=== PATIENT | male | born 1935 | race African-American/Black ===

== ENCOUNTER 2018-11-04 12:50 | Inpatient (IN) ==
--- NOTE | 2018-11-04 13:39 | XR ---
EXAM DATE: 11/04/2018 1:31 PM EST AGE/SEX: 83 years / Male INDICATIONS: Cardiac disease. CLINICAL DATA: This is the patient's initial encounter. Patient reports that signs and symptoms have been present for 1 day and indicates a pain score of Nonresponsive. MEDICAL/SURGICAL HISTORY: . Dementia. Alzheimer's. Pancreatitis. Neck pain. Hypertension. Numbn ess, feet. Arthritis. Back pain. Anxiety. None. COMPARISON: [facility] – [place] SING[place] AP, 06/08/2016. . FINDINGS: Portable AP view of the chest demonstrates a normal-sized cardiac silhouette with calcification of th e aorta. Lungs are underinflated with left basilar airspace opacity and mild patchy airspace opacity throughout the right lung. No pleural effusion or pneumothorax is identified. Bones and soft tissues demonstrate no acute abnormality. CONCLUSION: Mild patchy airspace consolidation in the right lung and left basilar opacity representing either ate lectasis or consolidation. Electronically signed by: Chandana Benitez MD 11/04/2018 1:38 PM EST
--- NOTE | 2018-11-04 13:53 | CT ---
EXAM DATE: 11/04/2018 1:49 PM EST AGE/SEX: 83 years / Male INDICATIONS: Altered mental status. CLINICAL DATA: This is the patient's initial encounter. Patient reports that signs and symptoms have been present for 1 day and indicates a pain score of 0/10. MEDICAL/SURGICAL HISTORY: Cerebrovascular disease. Hypertension. None. RADIATION DOSE: 37.52 CTDI (mGy) COMPARISON: [facility] – [place], [place] BRAIN W/O CONTRAST, 06/08/2016. . TECHNIQUE: CT of the head without contrast. Using automated exposure control and adjustment of the mA and/or kV according to patient size, radiation dose was kept as low as reasonably achievable to ob tain optimal diagnostic quality images. DICOM format image data is available electronically for revi ew and comparison. FINDINGS: Cerebrum: There is mild generalized atrophy and ventricles are normal given the degree of atrophy. M ild periventricular white matter change is present. No midline shift, mass lesion, hemorrhage or acu te infarction. No extraaxial fluid collections are seen. Posterior Fossa: The cerebellum and brainstem demonstrate no acute abnormality. The 4th ventricle is midline. The cerebellopontine angle is within normal limits. Extracranial: The visualized sinuses are clear. Skull: The calvaria is intact. No skull fracture. CONCLUSION: 1. No acute intracranial abnormality is identified. 2. Chronic findings include generalized atrophy and chronic periventricular white matter change. . Electronically signed by: Chandana Benitez MD 11/04/2018 1:52 PM EST
[2018-11-04] MEDS ORDERED: Sodium Chlor 0.9% Inj 500 ML IV.SIG SCH ×2 (14:00→16:51)
[2018-11-04 14:17] LABS: Baso % (Auto) 0.3 % (0.0-2.0); Eos # (Auto) 0.1 th/mm3 (0.0-0.4); Eos % (Auto) 1.1 % (0.0-4.0); Hemoglobin 12.5 gm/dL (13.0-17.0); Lymph # (Auto) 1.5 th/mm3 (1.0-4.8); Lymph % (Auto) 19.5 % (9.0-44.0); Mean Corpuscular HGB Conc 32.9 % (32.0-36.0); Mean Corpuscular Hemoglobin 29.8 pg (27.0-34.0); Mean Corpuscular Volume 90.7 fL (80.0-100.0); Mean Platelet Volume 9.1 fL (7.0-11.0); Mono # (Auto) 0.4 th/mm3 (0.0-0.9); Mono % (Auto) 5.8 % (0.0-8.0); Neut # (Auto) 5.6 th/mm3 (1.8-7.7); Neut % (Auto) 73.3 % (16.0-70.0); Platelet Count 142 th/mm3 (150-450); Red Blood Count 4.19 mil/mm3 (4.50-5.90); Red Cell Distribution Width 14.1 % (11.6-17.2); White Blood Count 7.7 th/mm3 (4.0-11.0)
--- NOTE | 2018-11-04 14:18 | ED ---
HPI General Chief Complaint: Altered Mental Status Stated Complaint: AMS Time Seen by Provider: 11/04/18 12:57 Source: EMS Mode of arrival: EMS History of Present Illness HPI narrative: Patient is an 83-year-old male, past medical history sick significant for, CVA with residual contractures, who presents with complaint of altered mental status for an unknown amount of possibly since yesterday or possibly today. When patient was asked if he has any pain he states no but does not provide further information. Per EMS his heart rate was in the 40s in route but this is his baseline and family has refused for him to have a pacemaker placed in the past. They report stable blood pressure while en route. MD complaint: Reports altered mental status Onset (ago): unknown Consistency of symptoms: unknown Context: Reports unknown Associated symptoms: Reports denies other symptoms Related Data Allergies Allergy/AdvReac Type Severity Reaction Status Date / Time No Known Allergies Allergy Uncoded 11/30/15 20:44 Review of Systems ROS Unobtainable ROS Unobtainable: unobtainable due to mental status PMFSH Medical History Medical History Altered mental status (Acute) Alzheimer disease (Acute) BPH (benign prostatic hyperplasia) (Acute) CVA (cerebral vascular accident) (Acute) Cataracts, bilateral (Acute) Chronic pain (Acute) Depression (Acute) Failure to thrive (Acute) [place] (hard of hearing) (Acute) Hypertension (Acute) Neuropathy (Acute) Osteoarthritis (Acute) Social History Social History Substance History: No History of Abuse Smoking Status: Unknown if ever smoked How Often Do You Have a Drink Containing Alcohol: Never Immunization History Tetanus Immunization: Unsure Exam Narrative Exam Narrative: GENERAL: Well-appearing, elderly male in no acute distress SKIN: Focused skin assessment warm/dry. Small chronic healing wound to top of left foot but no sacral decubitus ulcers. HEAD: Atraumatic. Normocephalic. EYES: Pupils equal and round. No scleral icterus. No injection or drainage. ENT: No nasal bleeding or discharge. Mucous membranes pink and moist. NECK: Trachea midline. No JVD. CARDIOVASCULAR: Regular rate and rhythm. No murmur appreciated. Intact and equal peripheral pulses. RESPIRATORY: No accessory muscle use. Clear to auscultation. Breath sounds equal bilaterally. GASTROINTESTINAL: Abdomen soft, non-tender, nondistended. Hepatic and splenic margins not palpable. MUSCULOSKELETAL: No clubbing. No cyanosis. No edema. NEUROLOGICAL: Awake and alert. No obvious cranial nerve deficits. Contractures to bilateral upper extremities. Patient wiggle toes when asked and did squeeze with his left hand when asked. He did not squeeze with his right hand when asked. PSYCHIATRIC: Appropriate mood and affect; insight and judgment normal. Course Initial Documented Vital Signs Pulse Oximetry 100 11/04/18 13:07 Last Documented Vital Signs Temperature 98.7 F 11/04/18 13:10 Pulse Rate 44 L 11/04/18 13:10 Respiratory Rate 20 11/04/18 13:10 Blood Pressure 130/59 L 11/04/18 13:10 Pulse Oximetry 100 11/04/18 13:10 Medical Decision Making MDM Narrative Medical decision making narrative: Patient is an 83-year-old male who presents from the [facility] with of decreased responsiveness and more fatigue. Patient has no complaints but is a poor historian. He is hemodynamically stable on the emergency department despite his chronic bradycardia with rate in the 40s. Chest x-ray does show pneumonia, blood cultures were drawn and he was given Rocephin and Levaquin. Labs reveal a creatinine of 3.8. We reviewed the patient's paperwork and discussed with family and they do not recall any previous history of chronic kidney disease this is assumed to be new. He has been given fluids and has been admitted for further evaluation and management of his TEODORO. Medical Screen Exam Complete: Yes Emergency Medical Condition: Yes Differential Diagnosis Differential Diagnosis: Differential diagnosis includes but is not limited to acute infection, trauma with intracranial hemorrhage, worsening of chronic medical issues. Medical Records Medical records reviewed: Yes I reviewed the patient's medical records. Lab Data Lab results reviewed: Yes I reviewed the patient's lab results. Result diagrams: 11/04/18 13:50 11/04/18 13:50 Lab Results 11/04/18 11/04/18 11/04/18 Range/Units 13:50 13:50 15:15 WBC 7.7 (4.0-11.0) th/mm3 RBC 4.19 L (4.50-5.90) mil/mm3 Hgb 12.5 L (13.0-17.0) gm/dL Hct 38.0 L (39.0-51.0) % MCV 90.7 (80.0-100.0) fL MCH 29.8 (27.0-34.0) pg MCHC 32.9 (32.0-36.0) % RDW 14.1 (11.6-17.2) % Plt Count 142 L (150-450) th/mm3 MPV 9.1 (7.0-11.0) fL Neut % (Auto) 73.3 H (16.0-70.0) % Lymph % (Auto) 19.5 (9.0-44.0) % [place] % (Auto) 5.8 (0.0-8.0) % Eos % (Auto) 1.1 (0.0-4.0) % Baso % (Auto) 0.3 (0.0-2.0) % Neut # (Auto) 5.6 (1.8-7.7) th/mm3 Lymph # (Auto) 1.5 (1.0-4.8) th/mm3 [place] # (Auto) 0.4 (0.0-0.9) th/mm3 Eos # (Auto) 0.1 (0.0-0.4) th/mm3 Baso # (Auto) 0.0 (0.0-0.2) th/mm3 WBC Differential . Differential Comment Auto diff final Sodium 140 (136-145) meq/L Potassium 5.1 (3.5-5.1) meq/L Chloride 101 (98-107) meq/L Carbon Dioxide 30.0 (21.0-32.0) meq/L Anion Gap 9 (5-15) meq/L BUN 40 H (7-18) mg/dL Creatinine 3.82 H (0.60-1.30) mg/dL Estimated GFR 18 L (>89) mL/min Random Glucose 109 H (74-106) mg/dL Calcium 8.3 L (8.5-10.1) mg/dL Magnesium 2.8 H (1.5-2.5) mg/dL Total Bilirubin 0.4 (0.2-1.0) mg/dL AST 12 L (15-37) U/L ALT 19 (12-78) U/L Alkaline Phosphatase 63 (45-117) U/L Troponin I Less than 0.02 L (0.02-0.05) ng/mL Total Protein 6.9 (6.4-8.2) g/dL Albumin 3.6 (3.4-5.0) g/dL Urine Color [place]armaine (Yellw/Straw) Urine Clarity Cloudy H (Clear) Urine pH 5.0 (5.0-8.5) Ur Specific [place] 1.020 (1.002-1.035) Urine Protein 100 H (Neg-Trace) mg/dL Urine Glucose (UA) Negative (Negative) mg/dL Urine Ketones Negative (Negative) mg/dL Urine Occult Blood Moderate H (Negative) Urine Nitrate Negative (Negative) Urine Bilirubin Negative (Negative) Urine Urobilinogen Less than 2 (Less than 2) mg/dL Ur Leukocyte Esterase Trace H (Negative) Urine RBC 24 H (0-3) /hpf Urine WBC 6 H (0-5) /hpf Ur Squamous Epith Cells 1 (0-5) /hpf Ur Transition Epith Cell 2 (None) /hpf Amorphous Sediment Rare H (None) /hpf Urine Bacteria Rare H (None) /hpf Granular Casts 84 (None) /lpf Urine Mucus Moderate H (Occasional) /lpf Micro UA Comment Cath-culture ind Ur Microscopic Review Not Reportable Urine Culture Comments Cath-cult indicated Imaging Data Attestation: I personally reviewed and interpreted this imaging study as follows : Radiologist's impression: Chest X-Ray 11/04/18 13:07 CONCLUSION: Mild patchy airspace consolidation in the right lung and left basilar opacity representing either atelectasis or consolidation. Head CT 11/04/18 13:07 CONCLUSION: 1. No acute intracranial abnormality is identified. 2. Chronic findings include generalized atrophy and chronic periventricular white matter change. . Discharge Plan Discharge Disposition Patient Disposition: ED Admit(ED Internal Use Only) Discharge Condition Condition: Stable Discharge Order Discharge Orders: ED Use Only Admit Order (Routine); Ordered 11/04/18 Ordered By: Awa June Discharge Details Diagnosis: Pneumonia, TEODORO (acute kidney injury) Physicians Team ED Provider: Awa June Primary Care Provider: Sameer Laurent Attending Provider: Claribel Ackerman Status ED Status: Admitted Patient
[2018-11-04 14:34] LABS: Alanine Aminotransferase 19 U/L (12-78); Albumin 3.6 g/dL (3.4-5.0); Anion Gap 9 meq/L (5-15); Aspartate Aminotransferase 12 U/L (15-37); Blood Urea Nitrogen 40 mg/dL (7-18); Calcium 8.3 mg/dL (8.5-10.1); Chloride 101 meq/L (98-107); Glomerular Filtration Rate 18 mL/min (>89); Glucose,Random 109 mg/dL (74-106); Magnesium 2.8 mg/dL (1.5-2.5); Potassium 5.1 meq/L (3.5-5.1); Sodium 140 meq/L (136-145)
[2018-11-04 14:38] LABS: Alkaline Phosphatase 63 U/L (45-117); Total Protein 6.9 g/dL (6.4-8.2)
[2018-11-04] MEDS ORDERED: Bisacodyl 10 MG Supp RECTAL PRN (15:44)
[2018-11-04] MEDS ORDERED: Acetaminophen 325 MG Tablet PO PRN (15:44)
[2018-11-04] MEDS ORDERED: Sod Chloride 0.9% Inj 1,000 ML IV.CONT SCH (15:45)
--- NOTE | 2018-11-04 15:52 | P.HPIM ---
History of Present Illness Primary Care Physician: Sameer Laurent MD Chief Complaint: Altered Mental Status History of Present Illness: Mr. Telles is an 83-year-old male. He has a past medical history of Alzheimer's disease. History is obtained from his family member. For the past 3 days it is reported that he has had a progressive onset of confusion and has been vomiting up some of his intake. P.o. intake has been decreased. No cough. Imaging however shows consolidation bilaterally suggestive of pneumonia. No hypoxia. Altered mental status is likely encephalopathy related to infection. Additionally he has acute kidney injury on top of a mild chronic kidney disease. Etiology for his acute kidney injury appears to be related to dehydration. No other complaints tonight. Patient cannot contribute to history and his current state. Review of Systems ROS Unobtainable: unobtainable due to mental condition and unobtainable due to mental status PMFSH Medical History Medical History Altered mental status (Acute) Alzheimer disease (Acute) BPH (benign prostatic hyperplasia) (Acute) CVA (cerebral vascular accident) (Acute) Cataracts, bilateral (Acute) Chronic pain (Acute) Depression (Acute) Failure to thrive (Acute) [place] (hard of hearing) (Acute) Hypertension (Acute) Neuropathy (Acute) Osteoarthritis (Acute) Family History Family History Other Osteoarthritis Social History Social History Substance History: No History of Abuse Smoking Status: Unknown if ever smoked How Often Do You Have a Drink Containing Alcohol: Never Immunization History Tetanus Immunization: Unsure Medications and Allergies Allergies Allergy/AdvReac Type Severity Reaction Status Date / Time No Known Allergies Allergy Uncoded 11/30/15 20:44 Home Medications Medication Instructions Recorded Confirmed Type alprazolam [Xanax] 0.25 mg PO BID 11/04/18 11/04/18 History amlodipine [Norvasc] 5 mg PO DAILY 11/04/18 11/04/18 History ammonium lactate [AmLactin] 1 applic TOPICAL QPM 11/04/18 11/04/18 History aspirin 81 mg PO DAILY 11/04/18 11/04/18 History clonidine HCl [Catapres] 0.1 mg PO DAILY 11/04/18 11/04/18 History hydrochlorothiazide 25 mg PO DAILY 11/04/18 11/04/18 History lactulose 20 g PO HS 11/04/18 11/04/18 History memantine [Namenda] 10 mg PO BID 11/04/18 11/04/18 History sennosides [senna] 8.6 mg PO BID 11/04/18 11/04/18 History Active Medications: Active Medications Acetaminophen (Tylenol) 650 mg PO Q4H PRN PRN Reason: Fever, Headache, pain 1-4 Al Hydroxide/Mg Hydroxide (Milk Of Magnesia Liq) 30 ml PO Q12H PRN PRN Reason: Mild Constipation Bisacodyl (Dulcolax Supp) 10 mg RECTAL DAILY PRN PRN Reason: SEVERE CONSITIPATION Heparin Sodium (Porcine) (Heparin Inj) 5,000 units SQ Q12H LAUREN Sodium Chloride (Ns Inj) 1,000 mls @ 100 mls/hr IV.CONT .Q10H LAUREN Stop: 11/05/18 15:44 Azithromycin 500 mg/ Sodium (Chloride) 250 mls @ 250 mls/hr IV.SIG Q24H LAUREN Ceftriaxone Sodium 2,000 mg/ (Sodium Chloride) 100 mls @ 200 mls/hr IV.SIG Q24H LAUREN Lactulose (Lactulose Liq) 30 ml PO DAILY PRN PRN Reason: SEVERE CONSITIPATION Ondansetron HCl (Zofran Inj) 4 mg IV.PUSH Q6H PRN PRN Reason: NAUSEA OR VOMITING Sennosides (Senokot) 17.2 mg PO Q12H PRN PRN Reason: Moderate Constipation Sodium Chloride (Ns Flush) 2 ml IV.FLUSH PRN PRN PRN Reason: FLUSH AFTER USING IV ACCESS Sodium Chloride (Ns Flush) 2 ml IV.FLUSH BID LAUREN Sodium Chloride (Ns Flush) 2 ml IV.FLUSH PRN PRN PRN Reason: FLUSH AFTER USING IV ACCESS Physical Exam Vital signs: Last Vital Signs Temp 98.7 F 11/04/18 13:10 Pulse 44 L 11/04/18 13:10 Resp 20 11/04/18 13:10 BP 130/59 L 11/04/18 13:10 Pulse Ox 100 11/04/18 13:10 Intake & Output 1211/03/18 11/04/18 11/05/18 06:59 06:59 06:59 06:59 Intake Total 500 / 500 Balance 500 / 500 Weight 75 kg Results Labs CBC & Chem 7: 11/04/18 13:50 11/04/18 13:50 Imaging Impressions Chest X-Ray 11/04/18 13:07 CONCLUSION: Mild patchy airspace consolidation in the right lung and left basilar opacity representing either atelectasis or consolidation. Head CT 11/04/18 13:07 CONCLUSION: 1. No acute intracranial abnormality is identified. 2. Chronic findings include generalized atrophy and chronic periventricular white matter change. . Caprini VTE Risk Assessment Caprini VTE Risk Assessment: Moderate/High Risk (score >= 2) Caprini Risk Assessment Model: Point Value = 1 Point Value = 2 Point Value = 3 Point Value = 5 Age 41-60 Minor surgery BMI > 25 kg/m2 Swollen legs Varicose veins or History of unexplained or recurrent spontaneous Oral contraceptives or hormone replacement Sepsis (< 1 month) Serious lung disease, including pneumonia (< 1 month) Abnormal pulmonary function Acute myocardial infarction Congestive heart failure (< 1 month) History of inflammatory bowel disease Medical patient at bed rest Age 61-74 Arthroscopic surgery Major open surgery (> 45 min) Laparoscopic surgery (> 45 min) Malignancy Confined to bed (> 72 hours) Immobilizing plaster cast Central venous access Age >= 75 History of VTE Family history of VTE Factor V Leiden Prothrombin [id number] Lupus anticoagulant Anticardiolipin antibodies Elevated serum homocysteine Heparin-induced thrombocytopenia Other congenital or acquired thrombophilia Stroke (< 1 month) Elective arthroplasty Hip, pelvis, or leg fracture Acute spinal cord injury (< 1 month) Prophylaxis Regimen: Total Risk Factor Score Risk Level Prophylaxis Regimen 0-1 Low Early ambulation 2 Moderate Order ONE of the following: *Sequential Compression Device (SCD) *Heparin 5000 units SQ BID 3-4 Higher Order ONE of the following medications: *Heparin 5000 units SQ TID *Enoxaparin/Lovenox 40 mg SQ daily (WT < 150 kg, CrCl > 30 mL/min) *Enoxaparin/Lovenox 30 mg SQ daily (WT < 150 kg, CrCl > 10-29 mL/min) *Enoxaparin/Lovenox 30 mg SQ BID (WT < 150 kg, CrCl > 30 mL/min) AND/OR *Sequential Compression Device (SCD) 5 or more Highest Order ONE of the following medications: *Heparin 5000 units SQ TID (Preferred with Epidurals) *Enoxaparin/Lovenox 40 mg SQ daily (WT < 150 kg, CrCl > 30 mL/min) *Enoxaparin/Lovenox 30 mg SQ daily (WT < 150 kg, CrCl > 10-29 mL/min) *Enoxaparin/Lovenox 30 mg SQ BID (WT < 150 kg, CrCl > 30 mL/min) AND *Sequential Compression Device (SCD) Assessment and Plan Plan 83 year old male admitted due to altered mental status and delerium, likely from encephalopathy related to pneumonia, with dehydration and TEODORO. TEODORO CKD Follow renal function IV Hydration Monitor I&O Possible etiology of TEODORO is dehydration Probable Community Acquired Pneumonia Rocephin Azithromycin Probiotics Oxygen support as needed Metabolic Encephalopathy Delerium Alzheimer Disease Related to infection Treat with antibiotics as above Follow for improvement HTN Continue baseline treatments Follow BP Adjust as needed BPH Hx of CVA Depression OA Chronic Neuropathy Continue baseline treatments DVT Prophylaxis SCDs, given current renal function
[2018-11-04 16:13] LABS: Amorphous Sediment,Urine Rare /hpf; Bacteria,Urine Rare /hpf; Bilirubin,Urine Negative (Negative); Clarity,Urine Cloudy (Clear); Color,Urine Amber (Yellw/Straw); Glucose,Urine (UA) Negative (Negative); Leukocyte Esterase,Urine Trace (Negative); Mucus,Urine Moderate /lpf (Occasional); Nitrite,Urine Negative (Negative); Squamous Epithelial Cell,Urine 1 /hpf (0-5); Transitional Epi Cells,Urine 2 /hpf
[2018-11-04] MEDS: Heparin - SQ 10,000 UNITS/ML Vial SQ SCH (16:15)
[2018-11-04] MEDS: Azithromycin Inj 500 MG in Sodium Chlor 0.9% Inj 250 ML IV.SIG SCH (17:30)
[2018-11-04] MEDS: Lactobacillus Acidophilus/L. Spores Tablet PO SCH (17:31)
[2018-11-04] MEDS: Sod Chloride 0.9% Inj 1,000 ML IV.CONT SCH (19:48)
[2018-11-05] MEDS: Sod Chloride 0.9% Inj 1,000 ML IV.CONT SCH ×2 (02:39→12:40)
[2018-11-05] MEDS: Heparin - SQ 10,000 UNITS/ML Vial SQ SCH ×2 (02:44→15:58)
[2018-11-05 07:18] LABS: Baso % (Auto) 0.4 % (0.0-2.0); Eos # (Auto) 0.2 th/mm3 (0.0-0.4); Hematocrit 34.3 % (39.0-51.0); Hemoglobin 11.5 gm/dL (13.0-17.0); Lymph # (Auto) 1.5 th/mm3 (1.0-4.8); Lymph % (Auto) 29.3 % (9.0-44.0); Mean Corpuscular HGB Conc 33.6 % (32.0-36.0); Mean Corpuscular Hemoglobin 29.5 pg (27.0-34.0); Mean Corpuscular Volume 87.7 fL (80.0-100.0); Mean Platelet Volume 9.4 fL (7.0-11.0); Mono # (Auto) 0.4 th/mm3 (0.0-0.9); Mono % (Auto) 6.9 % (0.0-8.0); Neut # (Auto) 3.2 th/mm3 (1.8-7.7); Neut % (Auto) 60.4 % (16.0-70.0); Platelet Count 136 th/mm3 (150-450); Red Blood Count 3.91 mil/mm3 (4.50-5.90); White Blood Count 5.3 th/mm3 (4.0-11.0)
[2018-11-05 07:36] LABS: Albumin 3.1 g/dL (3.4-5.0); Anion Gap 9 meq/L (5-15); Aspartate Aminotransferase 16 U/L (15-37); Blood Urea Nitrogen 40 mg/dL (7-18); Calcium 7.8 mg/dL (8.5-10.1); Carbon Dioxide 25.1 meq/L (21.0-32.0); Chloride 107 meq/L (98-107); Glomerular Filtration Rate 26 mL/min (>89); Glucose,Random 86 mg/dL (74-106); Potassium 4.4 meq/L (3.5-5.1); Sodium 141 meq/L (136-145)
[2018-11-05 07:39] LABS: Alanine Aminotransferase 17 U/L (12-78); Alkaline Phosphatase 55 U/L (45-117); Total Protein 6.2 g/dL (6.4-8.2)
[2018-11-05] MEDS: Lactobacillus Acidophilus/L. Spores Tablet PO SCH ×3 (08:01→18:02)
--- NOTE | 2018-11-05 12:26 | P.PNIM ---
Subjective Interval history: Follow up altered mental status, pneumonia, yeast infection Patient seen and examined while resting in bed. Daughter at bedside. Patient with history of Alzheimer's. He responds "yep" to everything. Daughter states patient lives in a long-term and she noticed that he was less alert over the past few days. He has had a poor appetite. She became concerned and called 911. Daughter states patients mental status is significantly improved since admission but not quite back to baseline. RN notes yeast to groin area and genitals. Physical Exam Vital signs: Last Vital Signs Temp 98.1 F 11/05/18 08:00 Pulse 50 L 11/05/18 08:00 Resp 20 11/05/18 08:00 BP 118/53 L 11/05/18 08:00 Pulse Ox 97 11/05/18 12:12 Intake & Output 11/03/18 11/04/18 11/05/18 11/06/18 06:59 06:59 06:59 06:59 Intake Total 3500 / 3500 704 / 704 Balance 3500 / 3500 704 / 704 Weight 64.6 kg Narrative: GENERAL: no acute distress SKIN: Warm and dry. HEAD: Normocephalic, atraumatic EYES: No scleral icterus. No injection or drainage. NECK: Supple, trachea midline. No JVD or lymphadenopathy. CARDIOVASCULAR: Regular rate and rhythm without murmurs, gallops, or rubs. RESPIRATORY: Breath sounds equal bilaterally. No accessory muscle use. GASTROINTESTINAL: Abdomen soft, non-tender, nondistended. MUSCULOSKELETAL: No cyanosis, or edema. Results Labs CBC & Chem 7: 11/05/18 06:34 11/05/18 06:34 Labs: Microbiology 11/04/18 15:15 Catheterized Urine Urine Culture - Preliminary No growth in 24 hours 11/04/18 16:30 Blood - Peripheral Aerobic Blood Culture - Preliminary No growth in 1 day 11/04/18 16:30 Blood - Peripheral Anaerobic Blood Culture - Preliminary No growth in 1 day 11/04/18 15:00 Blood - Peripheral Aerobic Blood Culture - Preliminary No growth in 1 day 11/04/18 15:00 Blood - Peripheral Anaerobic Blood Culture - Preliminary No growth in 1 day Imaging Imaging: Impressions Chest X-Ray 11/04/18 13:07 CONCLUSION: Mild patchy airspace consolidation in the right lung and left basilar opacity representing either atelectasis or consolidation. Head CT 11/04/18 13:07 CONCLUSION: 1. No acute intracranial abnormality is identified. 2. Chronic findings include generalized atrophy and chronic periventricular white matter change. . Assessment and Plan Plan 83 year old male admitted due to altered mental status and delerium, likely from encephalopathy related to pneumonia, with dehydration and TEODORO. Probable Community Acquired Pneumonia -no WBC, afebrile, O2 sat 97% on RA -continue IV Rocephin & Azithromycin -Probiotics -Oxygen support as needed Acute kidney injury, likely superimposed on CKD 2/2 to dehydration - low GFR -slightly improved -Follow renal function -continue IV Hydration -Monitor I&O Metabolic Encephalopathy - improved -likely 2/2 infectious process -delirium related to infection -Treat with antibiotics as above -continue to monitor for improvement Alzheimer Disease -resume home med Namenda HTN - patient hypotensive -hold Amlodipine and Clonidine until B/P improves -continue to monitor VS per unit protocol Chronic conditions: BPH Hx of CVA Depression OA Chronic Neuropathy Continue baseline treatments MDM: daughter Code: Full DVT ppx: SCD's Discussed Condition With: RN, patient Discharge Planning: Return to long-term, CM to assist
[2018-11-05] MEDS: Azithromycin Inj 500 MG in Sodium Chlor 0.9% Inj 250 ML IV.SIG SCH (15:59)
[2018-11-05] MEDS: Lactic Acid (Ammonium Lactate) 12% Lotion 225 GM Bottle TOPICAL SCH (18:02)
[2018-11-06] MEDS: Sod Chloride 0.9% Inj 1,000 ML IV.CONT SCH ×3 (00:35→21:26)
[2018-11-06] MEDS: Heparin - SQ 10,000 UNITS/ML Vial SQ SCH ×2 (04:39→15:43)
[2018-11-06] MEDS: Lactobacillus Acidophilus/L. Spores Tablet PO SCH ×3 (08:57→18:30)
--- NOTE | 2018-11-06 13:33 | P.PN ---
Subjective Interval history: Follow-up visit for probable community-acquired pneumonia, TEODORO on CKD, Alzheimer 's and encephalopathy. Patient seen and examined sitting up in bed with daughter at bedside, daughter reported to nurse earlier as well as to me now that patient complained of pain earlier today. Patient is sitting up and he is awake and alert, oriented to self and place. Denies any pain or discomfort, multiple attempts to further assess pain however denies. Patient denies any shortness of breath, cough, nausea or vomiting. No events reported by nursing staff. Physical Exam Vital signs: Vital Signs 11/05/18 16:00 11/05/18 19:30 11/05/18 19:56 Temperature 98.1 F 98.3 F Pulse Rate 58 L 59 L 59 L Respiratory Rate 20 16 Blood Pressure 128/59 L 117/56 L Pulse Oximetry 97 94 L 11/06/18 00:00 11/06/18 04:00 11/06/18 08:25 Temperature 98.1 F 97.8 F 98.6 F Pulse Rate 60 81 106 H Respiratory Rate 16 16 19 Blood Pressure 124/60 144/93 H 127/85 Pulse Oximetry 95 95 95 11/06/18 12:12 Temperature 98.9 F Pulse Rate 62 Respiratory Rate 19 Blood Pressure 138/63 Pulse Oximetry 99 Intake & Output 11/05/18 11/06/18 11/06/18 18:59 06:59 18:59 Intake Total 1715 / 1715 625 / 625 1100 / 1100 Balance 1715 / 1715 625 / 625 1100 / 1100 Weight 64.6 kg Intake: IV 1715 / 1715 625 / 625 1100 / 1100 NS Inj 1,000 ML @ 100 mls/hr IV 1365 / 1365 625 / 625 1000 / 1000 .CONT .Q10H LUAREN Rx#:[id number] Azithromycin Inj 500 MG In NS 250 / 250 Inj 250 ML @ 250 mls/hr IV.SIG Q24H LAUREN Rx#:[id number] Rocephin Inj 2,000 MG In NS Inj 100 / 100 100 / 100 100 ML @ 200 mls/hr IV.SIG Q24H LAUREN Rx#:[id number] Other: # Incontinent Voids 5 1 Date of Last Bowel Movement 11/04/18 11/04/18 11/04/18 Narrative: GENERAL: Well-nourished, well-developed elderly AA male in no acute distress. SKIN: Warm and dry. HEAD: Normocephalic, atraumatic EYES: No scleral icterus. No injection or drainage. NECK: Supple, trachea midline. CARDIOVASCULAR: Regular rate and rhythm without murmurs, gallops, or rubs. RESPIRATORY: Breath sounds equal bilaterally. No accessory muscle use. GASTROINTESTINAL: Abdomen soft, non-tender, nondistended. + Bowel sounds in all quadrants. MUSCULOSKELETAL: No cyanosis, or edema. NEUROLOGICAL: Awake, alert, oriented to self and place. No obvious cranial nerve deficits. Motor grossly within normal limits. LUE and bilateral LE 4/5, RUE 3/5 with contracture to wrist and fingers. Normal speech. Results - Labs CBC & Chem 7: 11/05/18 06:34 11/05/18 06:34 Microbiology 11/04/18 16:30 Blood - Peripheral Aerobic Blood Culture - Preliminary No growth in 2 days 11/04/18 16:30 Blood - Peripheral Anaerobic Blood Culture - Preliminary No growth in 2 days 11/04/18 15:00 Blood - Peripheral Aerobic Blood Culture - Preliminary No growth in 2 days 11/04/18 15:00 Blood - Peripheral Anaerobic Blood Culture - Preliminary No growth in 2 days 11/04/18 15:15 Catheterized Urine Urine Culture - Final No growth in 48 hours Assessment and Plan - Plan 83 year old male admitted due to altered mental status and delerium, likely from encephalopathy related to pneumonia, with dehydration and TEODORO. Probable Community Acquired Pneumonia -no WBC, afebrile, O2 sat stable on RA -continue IV Rocephin & Azithromycin, check pro-calcitonin with a.m. labs, consider switching to p.o. azithromycin if stable. -Probiotics -Oxygen support as needed Acute kidney injury, likely superimposed on CKD 2/2 to dehydration - low GFR -slightly improved -Follow renal function -continue IV Hydration -Monitor I&O -Monitor renal function Metabolic Encephalopathy - improved -likely 2/2 infectious process -delirium related to infection -Treat with antibiotics as above -continue to monitor for improvement, oriented to self and place Alzheimer Disease -Continue home dose Namenda HTN - patient hypotensive -Continue to hold amlodipine and Clonidine, BP stable -continue to monitor VS per unit protocol Bilateral groin yeast -Continue miconazole powder ? Abdominal pain -Check KUB, last BM reported by nurse as 2 days ago. Chronic conditions: BPH Hx of CVA Depression OA Chronic Neuropathy Continue baseline treatments DVT prophylaxissubcu heparin Discussed Condition With: Discussed with patient, nurse, daughter bedside. Discharge Planning: Patient will return to half-way once discharged.
[2018-11-06] MEDS: Azithromycin Inj 500 MG in Sodium Chlor 0.9% Inj 250 ML IV.SIG SCH (16:36)
--- NOTE | 2018-11-06 17:53 | XR ---
EXAM DATE: 11/06/2018 5:45 PM EST AGE/SEX: 83 years / Male INDICATIONS: Abdominal pain. CLINICAL DATA: This is the patient's initial encounter. Patient reports that signs and symptoms have been present for 1 day and indicates a pain score of Nonresponsive. MEDICAL/SURGICAL HISTORY: . Dementia. Alzheimer's. Pancreatitis. Neck pain. Hypertension. Arthr itis. Back pain. Anxiety. None. COMPARISON: [facility] – [place], ABDOMEN UPRIGHT ONLY, 12/01/2015. . FINDINGS: 2 AP supine views of the abdomen were obtained and demonstrate gas and stool noted segmentally in th e colon. There are multiple loops of nondilated air-containing small bowel present. There is no evide nce of free air on this supine study. Scoliosis and degenerative changes are again noted in the lumba r spine. The lung bases are clear. CONCLUSION: Nonspecific, nonobstructive bowel gas pattern most characteristic of a mild ileus and/or gastroenteri tis. Electronically signed by: Anival Seymour MD 11/06/2018 5:52 PM EST
[2018-11-06] MEDS: Lactic Acid (Ammonium Lactate) 12% Lotion 225 GM Bottle TOPICAL SCH (18:30)
[2018-11-06 18:38] LABS: Baso % (Auto) 0.4 % (0.0-2.0); Eos # (Auto) 0.1 th/mm3 (0.0-0.4); Hematocrit 34.6 % (39.0-51.0); Hemoglobin 11.5 gm/dL (13.0-17.0); Lymph # (Auto) 1.4 th/mm3 (1.0-4.8); Lymph % (Auto) 23.8 % (9.0-44.0); Mean Corpuscular HGB Conc 33.2 % (32.0-36.0); Mean Corpuscular Hemoglobin 29.4 pg (27.0-34.0); Mean Corpuscular Volume 88.5 fL (80.0-100.0); Mean Platelet Volume 8.9 fL (7.0-11.0); Mono # (Auto) 0.4 th/mm3 (0.0-0.9); Mono % (Auto) 7.3 % (0.0-8.0); Neut # (Auto) 4.1 th/mm3 (1.8-7.7); Neut % (Auto) 67.5 % (16.0-70.0); Platelet Count 124 th/mm3 (150-450); Red Cell Distribution Width 13.9 % (11.6-17.2)
[2018-11-06 19:09] LABS: Calcium 7.8 mg/dL (8.5-10.1); Carbon Dioxide 23.3 meq/L (21.0-32.0); Potassium 4.5 meq/L (3.5-5.1)
[2018-11-07] MEDS: Heparin - SQ 10,000 UNITS/ML Vial SQ SCH (03:39)
[2018-11-07] MEDS: Sod Chloride 0.9% Inj 1,000 ML IV.CONT SCH (05:00)
[2018-11-07 05:20] VITALS: RESP 18
[2018-11-07] MEDS: Lactobacillus Acidophilus/L. Spores Tablet PO SCH (08:30)
[2018-11-07 09:59] LABS: Calcium 8.4 mg/dL (8.5-10.1); Carbon Dioxide 20.6 meq/L (21.0-32.0); Potassium 4.8 meq/L (3.5-5.1)
--- NOTE | 2018-11-07 10:02 | XR ---
EXAM DATE: 11/07/2018 9:50 AM EST AGE/SEX: 83 years / Male INDICATIONS: Follow up airspace disease and pneumonia. Patient states no chest complaints. CLINICAL DATA: This is the patient's subsequent encounter. Patient reports that signs and symptoms h ave been present for 4 - 6 days and indicates a pain score of Nonresponsive. MEDICAL/SURGICAL HISTORY: . Dementia. Alzheimer's. Pancreatitis. Neck pain. Hypertension. Arth ritis. Back pain. Anxiety. None. COMPARISON: [facility] – [place], CHEST 1V SINGLE AP, 11/04/2018. . FINDINGS: A single AP view of the chest demonstrates the lungs to be symmetrically aerated without evidence of mass, infiltrate or effusion. The cardiomediastinal contours are unremarkable. Osseous structures a re intact. Atherosclerotic changes are again noted in the aorta with dilatation calcification. There are multiple overlying electrocardiogram leads. CONCLUSION: No acute cardiopulmonary disease now noted. The previously noted patchy airspace disease in the lungs has cleared. Electronically signed by: Anival Seymour MD 11/07/2018 10:00 AM EST
[2018-11-07 10:32] LABS: Baso % (Auto) 0.6 % (0.0-2.0); Eos # (Auto) 0.1 th/mm3 (0.0-0.4); Eos % (Auto) 1.9 % (0.0-4.0); Hematocrit 37.5 % (39.0-51.0); Hemoglobin 13.1 gm/dL (13.0-17.0); Lymph # (Auto) 1.3 th/mm3 (1.0-4.8); Lymph % (Auto) 23.5 % (9.0-44.0); Mean Corpuscular Hemoglobin 30.7 pg (27.0-34.0); Mean Corpuscular Volume 87.7 fL (80.0-100.0); Mean Platelet Volume 10.1 fL (7.0-11.0); Mono # (Auto) 0.3 th/mm3 (0.0-0.9); Mono % (Auto) 5.6 % (0.0-8.0); Neut # (Auto) 3.9 th/mm3 (1.8-7.7); Neut % (Auto) 68.4 % (16.0-70.0); Platelet Count 152 th/mm3 (150-450); Red Blood Count 4.27 mil/mm3 (4.50-5.90); Red Cell Distribution Width 13.5 % (11.6-17.2); White Blood Count 5.6 th/mm3 (4.0-11.0)
[2018-11-07 10:35] LABS: Platelet Estimate Normal (Normal); Platelet Morphology Clumped (Normal)
--- NOTE | 2018-11-07 10:45 | P.DS ---
Date of admission: 11/04/18 15:58 Primary care physician: Sameer Laurent MD Attending physician on discharge: Jessica Cee Anticipated date of discharge: 11/07/18 Brief History from admission: Mr. Telles is an 83-year-old male. He has a past medical history of Alzheimer' s disease. History is obtained from his family member. For the past 3 days it is reported that he has had a progressive onset of confusion and has been vomiting up some of his intake. P.o. intake has been decreased. No cough. Imaging however shows consolidation bilaterally suggestive of pneumonia. No hypoxia. Altered mental status is likely encephalopathy related to infection. Additionally he has acute kidney injury on top of a mild chronic kidney disease. Etiology for his acute kidney injury appears to be related to dehydration. No other complaints tonight. Patient cannot contribute to history and his current state. DS: Medications - Discharge Medications Prescriptions: alprazolam [Xanax] 0.25 mg PO BID PRN #6 tab PRN Reason: Anxiety azithromycin 250 mg PO DAILY #3 tab DS: Summary Hospital Course: 83-year-old -[place] male with past medical history significant for Alzheimer's, BPH, CVA, chronic pain, depression, HTN, neuropathy and arthritis who presented to the emergency department on 11/04 from [facility] and rehab after family had noted due to progressive confusion with nausea and vomiting. Head CT showed no acute abnormality. Chest x-ray on admission showed mild patchy airspace consolidation in the right lung and left basilar opacities representing either atelectasis or consolidation. He had no leukocytosis and was afebrile. Based on chest x-ray he was started on IV Rocephin and azithromycin for coverage of probable community-acquired pneumonia. Encephalopathy was thought to be related to infection. Patient's lab work did reveal an elevated creatinine of 3.82 and elevated BUN at 40. He was given IV fluids for hydration with improvement in creatinine to 1.54 and BUN 19. Patient does seen and examined sitting up in bed in no acute distress. Denies any fevers, chills, N/V/D, cough or SOB. States "I ain't got none of that wrong with me, I'm fine" He denies any pain or discomfort. Nurse reports patient is more talkative and alert this morning, no acute events overnight or this morning. Patient also had one bowel movement. CBC this morning with no leukocytosis, patient afebrile. Creatinine continues to improve. Pro- calcitonin 0.07, repeat chest x-ray this morning with no acute pulmonary disease. Previously noted patchy airspace disease now cleared. Discussed discharge with the daughter back to [facility] today. E-force checked, no report generated. - Time Spent with Patient Total time spent providing and/or coordinating discharge services: Greater than 30 minutes Exam Vital signs: Vital Signs 11/06/18 12:12 11/06/18 15:05 11/06/18 20:02 Temperature 98.9 F 98.1 F Pulse Rate 62 64 52 L Respiratory Rate 19 19 Blood Pressure 138/63 142/61 H Pulse Oximetry 99 96 11/06/18 20:03 11/06/18 23:49 11/07/18 00:51 Temperature 98.4 F 98.6 F Pulse Rate 55 L 52 L 86 Respiratory Rate 18 20 Blood Pressure 163/79 H 156/64 H Pulse Oximetry 98 96 11/07/18 02:40 11/07/18 03:56 11/07/18 04:09 Temperature 98.5 F Pulse Rate 53 L 52 L Respiratory Rate 19 18 Blood Pressure 161/64 H Pulse Oximetry 97 11/07/18 06:48 11/07/18 08:00 Temperature 98.5 F Pulse Rate 53 L Respiratory Rate 18 18 Blood Pressure 146/67 H Pulse Oximetry 94 L Intake & Output 11/06/18 11/07/18 11/07/18 18:59 06:59 18:59 Intake Total 1350 / 1350 1000 / 1000 480 / 480 Balance 1350 / 1350 1000 / 1000 480 / 480 Weight 62.5 kg Intake: IV 1350 / 1350 1000 / 1000 NS Inj 1,000 ML @ 100 mls/hr IV 1000 / 1000 1000 / 1000 .CONT .Q10H LAUREN Rx#:[id number] Azithromycin Inj 500 MG In NS 250 / 250 Inj 250 ML @ 250 mls/hr IV.SIG Q24H LAUREN Rx#:[id number] Rocephin Inj 2,000 MG In NS Inj 100 / 100 100 ML @ 200 mls/hr IV.SIG Q24H LAUREN Rx#:[id number] Oral 480 / 480 Other: # Voids 1 2 Date of Last Bowel Movement 1211/04/18 11/05/18 Narrative: GENERAL: Well-nourished, well-developed elderly AA male in no acute distress. SKIN: Warm and dry. HEAD: Normocephalic, atraumatic EYES: No scleral icterus. No injection or drainage. NECK: Supple, trachea midline. CARDIOVASCULAR: Regular rate and rhythm without murmurs, gallops, or rubs. RESPIRATORY: Breath sounds clear, equal bilaterally. No accessory muscle use. GASTROINTESTINAL: Abdomen soft, non-tender, nondistended. + Bowel sounds in all quadrants. MUSCULOSKELETAL: No cyanosis, or edema. NEUROLOGICAL: Awake, alert, oriented to self and place. No obvious cranial nerve deficits. Motor grossly within normal limits. LUE and bilateral LE 4/5, RUE 3/5 with contracture to wrist and fingers. Normal speech. Results Procedures completed during hospitalization: None Labs on day of discharge: Labs from last 24 hours 11/07/18 11/07/18 11/07/18 09:01 09:01 09:01 WBC 5.6 RBC 4.27 L Hgb 13.1 Hct 37.5 L MCV 87.7 MCH 30.7 MCHC 35.0 RDW 13.5 Plt Count 152 MPV 10.1 Prelim Diff (Auto) Slide review pending Neut % (Auto) 68.4 Lymph % (Auto) 23.5 [place] % (Auto) 5.6 Eos % (Auto) 1.9 Baso % (Auto) 0.6 Neut # (Auto) 3.9 Lymph # (Auto) 1.3 [place] # (Auto) 0.3 Eos # (Auto) 0.1 Baso # (Auto) 0.0 WBC Differential . Diff Scan Auto diff confirmed Differential Comment . Platelet Estimate Normal Platelet Morphology Clumped H Sodium 136 Potassium 4.8 Chloride 107 Carbon Dioxide 20.6 L Anion Gap 8 BUN 19 H Creatinine 1.54 H Estimated GFR 52 L Random Glucose 135 H Calcium 8.4 L Procalcitonin Pending 11/06/18 11/06/18 18:20 18:20 WBC 6.0 RBC 3.90 L Hgb 11.5 L Hct 34.6 L MCV 88.5 MCH 29.4 MCHC 33.2 RDW 13.9 Plt Count 124 L MPV 8.9 Prelim Diff (Auto) Neut % (Auto) 67.5 Lymph % (Auto) 23.8 [place] % (Auto) 7.3 Eos % (Auto) 1.0 Baso % (Auto) 0.4 Neut # (Auto) 4.1 Lymph # (Auto) 1.4 [place] # (Auto) 0.4 Eos # (Auto) 0.1 Baso # (Auto) 0.0 WBC Differential . Diff Scan Differential Comment Auto diff final Platelet Estimate Platelet Morphology Sodium 138 Potassium 4.5 Chloride 109 H Carbon Dioxide 23.3 Anion Gap 6 BUN 24 H Creatinine 1.62 H Estimated GFR 49 L Random Glucose 90 Calcium 7.8 L Procalcitonin Preliminary micro results at discharge 11/04/18 16:30 Aerobic Blood Culture - Preliminary Blood - Peripheral No growth in 2 days Anaerobic Blood Culture - Preliminary No growth in 2 days 11/04/18 15:00 Aerobic Blood Culture - Preliminary Blood - Peripheral No growth in 2 days Anaerobic Blood Culture - Preliminary No growth in 2 days - Impressions ITS Impressions Head CT 11/04/18 13:07 CONCLUSION: 1. No acute intracranial abnormality is identified. 2. Chronic findings include generalized atrophy and chronic periventricular white matter change. . Abdomen X-Ray 11/06/18 00:00 CONCLUSION: Nonspecific, nonobstructive bowel gas pattern most characteristic of a mild ileus and/or gastroenteritis. Chest X-Ray 11/07/18 00:00 CONCLUSION: No acute cardiopulmonary disease now noted. The previously noted patchy airspace disease in the lungs has cleared. Discharge Plan - Discharge Disposition Patient Disposition: 03 Discharge to SNF - Discharge Condition Condition: Stable - Discharge Order Discharge Orders: Discharge Order (Routine); Ordered 11/07/18 Ordered By: Nicholas Diaz ED Use Only Admit Order (Routine); Ordered 11/04/18 Ordered By: Awa June - Physicians Team Primary Care Provider: Sameer Laurent Attending Provider: Jessica Cee [facility]
[2018-11-07 13:15] VITALS: BP 139/65; PULSE 84; TEMP 98.6; O2SAT 92
[2018-11-08] MEDS ORDERED: Azithromycin 250 MG Tablet PO SCH (18:00)
== END 2018-11-07 15:15 ==
LOC: NEPE 12:50 → NEDA 15:58 → N06 16:57
PROVIDERS: ADMIT Internal Medicine; ATTEND Internal Medicine